=== PATIENT | female | born 1965 | race Caucasian/White ===

== ENCOUNTER 2018-08-22 22:12 | Emergency (ER) | payer BC ==
[~2018-08-22] VITALS: Ht 177.8 cm; Wt 63.6 kg
[2018-08-22] MEDS ORDERED: LACT10SO PO (23:02)
[2018-08-22] MEDS ORDERED: AMINOPYRIDINE PO (23:02)
[2018-08-22] MEDS ORDERED: BACL20TA PO (23:02)
--- NOTE | 2018-08-22 23:08 | NUR ---
Received pt on [address]. Pt tearful upon admission, but cooperative. Pt states she wants to kill herself because she is tired of dealing with MS. Pt has multiple scerosis since 1992 and hasn't been able to walk since late 1989's. Pt family went on vacation to [facility] and she was left at home with daily caregiver. Pt called caregiver and relayed her S.I. and caregiver called 911.
[2018-08-22 23:20] LABS: BASOPHILS % (AUTO) 0.3 % (0-1); EOSINOPHILS # (AUTO) 0.1 X10'3 (0-0.9); EOSINOPHILS % (AUTO) 1.5 % (0-6); HEMATOCRIT 40.6 % (35.0-45.0); HEMOGLOBIN 13.7 g/dl (12.0-16.0); LYMPHOCYTES # (AUTO) 2.4 X10'3 (1.1-4.8); MEAN CORPUSCULAR HEMOGLOBIN 29.8 PG (27.0-31.0); MEAN CORPUSCULAR HGB CONC 33.8 g/dL (33.0-36.5); MEAN CORPUSCULAR VOLUME 88.2 FL (78-98); MEAN PLATELET VOLUME 8.6 FL (7.4-10.4); MONOCYTES % (AUTO) 10.5 % (2-12); NEUTROPHILS # (AUTO) 6.1 X10'3 (1.8-7.7); NEUTROPHILS % (AUTO) 62.7 % (42-75); PLATELET COUNT 305 X10'3 (140-440); WHITE BLOOD COUNT 9.7 X10'3 (4.5-11.0)
[2018-08-22 23:32] LABS: ALANINE AMINOTRANSFERASE 22 U/L (12-78); ALBUMIN 3.3 G/DL (3.4-5.0); ALBUMIN/GLOBULIN RATIO 0.9 (1.1-1.5); ALKALINE PHOSPHATASE 68 IU/L (46-116); ANION GAP 6 (8-16); ASPARTATE AMINO TRANSFERASE 11 U/L (10-37); BILIRUBIN,TOTAL 0.2 MG/DL (0.1-1.0); BLOOD UREA NITROGEN 9 MG/DL (7-18); BUN/CREATININE RATIO 12.3 (6.6-38.0); CALCIUM 9.1 MG/DL (8.5-10.1); CHLORIDE 107 MMOL/L (99-107); CREATININE 0.73 MG/DL (0.40-0.90); GLUCOSE 102 MG/DL (70-104); POTASSIUM 3.7 MMOL/L (3.5-5.1); SODIUM 144 MMOL/L (135-145); TOTAL CARBON DIOXIDE 31.1 MMOL/L (24-32); TOTAL PROTEIN 6.8 G/DL (6.4-8.2); eGFR 83 ML/MIN
[2018-08-22 23:34] LABS: ETHANOL < 0.010 GM/DL (0.0-0.010)
--- NOTE | 2018-08-22 23:57 | NUR ---
Pt's home meds sent to pharmacy.
--- NOTE | 2018-08-22 23:58 | NUR ---
Pt's wheelchair placed in room 29 for safe keeping. Pt labels attached.
[2018-08-23] MEDS ORDERED: AMINOPYRIDINE PO
[2018-08-23] MEDS ORDERED: AMINOPYRIDINE PO SCH (00:05)
--- NOTE | 2018-08-23 01:00 | NUR ---
Pt agreeable with admission process and then was able to fall asleep.
[2018-08-23 01:22] LABS: URINE HCG NEGATIVE (NEG)
[2018-08-23 01:33] LABS: URINE AMPHETAMINE SCREEN NEGATIVE (Neg); URINE BARBITUATE SCREEN NEGATIVE (Neg); URINE BENZODIAZEPINES SCREEN NEGATIVE (Neg); URINE CANNABINOID SCREEN POSITIVE (Neg); URINE COCAINE SCREEN NEGATIVE (Neg); URINE METHADONE SCREEN NEGATIVE (Neg); URINE OPIATE SCREEN NEGATIVE (Neg); URINE PHENCYCLIDINE SCREEN NEGATIVE (Neg)
[2018-08-23 02:07] LABS: CLARITY,URINE CLOUDY (Clear); COLOR,URINE AMBER (Yellow); GLUCOSE, URINE NEGATIVE (Neg); KETONES,URINE TRACE mg/dl (Neg); LEUKOCYTE ESTERASE ,URINE MODERATE (Neg); NITRITES, URINE POSITIVE (Neg); OCCULT BLOOD,URINE TRACE-INTACT (Neg); PROTEIN,URINE NEGATIVE (Neg); UROBILINOGEN,URINE 0.2 E.U/dL (0.2-1.0)
[2018-08-23 02:08] LABS: UA COLLECTION TYPE URINAL
[2018-08-23 02:53] LABS: BACTERIA,URINE 3+ /HPF (Neg); MUCUS STRANDS FEW /LPF (Neg); RBC,URINE 0-2 /HPF (0-2); SQUAMOUS EPITHELIAL CELL,UR FEW /LPF (FEW); WBC,URINE TNTC /HPF (0-4)
--- NOTE | 2018-08-23 03:00 | NUR ---
Pt up to comode to urinate. Pt went back to sleep without distress.
--- NOTE | 2018-08-23 03:19 | NUR ---
Packet faxed to [facility]. Unable to confirm receipt of packet as [id number] hours. Updated Face Sheet will be sent to [facility] once Registration has updated pt's personal details.
--- NOTE | 2018-08-23 04:43 | NUR ---
This credit underwriter assisted pt to [facility]. Pericare given. Skin assessment - skin dry, clean and intact. Small bruise on pt's left buttock. Pt unaware, RN informed. Small dry lesion on top of left foot. Appears to be healing.
--- NOTE | 2018-08-23 05:00 | NUR ---
Pt urinalysis returned with probable urinary tract infection and MD ordered keflex abx to begin in am.
[2018-08-23] MEDS: baclofen 10mg tablet PO SCH ×3 (06:05→17:53)
[2018-08-23] MEDS: cephalexin 250mg capsule PO SCH ×2 (06:05→20:13)
[2018-08-23] MEDS: AMINOPYRIDINE PO SCH ×2 (06:06→17:55)
[2018-08-23] MEDS: lactulose 20gm/30ml cup PO SCH ×2 (06:13→17:55)
--- NOTE | 2018-08-23 06:30 | NUR ---
Assumed care from VIKY Horne. Pt awake sitting on the side of her bed. She is concerned about her dog getting fed this morning. DALIA Segovia retrieved a phone number from her property in the ambulance bay and will call at [phone] to assist w/getting her dog fed. 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
[2018-08-23] MEDS ORDERED: baclofen 10mg tablet PO SCH ×2 (08:00)
[2018-08-23] MEDS ORDERED: lactulose 20gm/30ml cup PO SCH (08:00)
--- NOTE | 2018-08-23 08:15 | NUR ---
Pt is up sitting on the bedside commode. She reports not having a bowel movement x2 days and has been given lactolose.
--- NOTE | 2018-08-23 08:45 | NUR ---
Pt's called. Pt tearful on the phone. Pt states she is upset that she was unable to go with her family to celebrate her son's college graduation.
--- NOTE | 2018-08-23 09:22 | NUR ---
Pt back on the bedside commode. Privacy provided.
--- NOTE | 2018-08-23 10:22 | NUR ---
Pt has had a BM continues to move from the commode back to her chair. Pt is able to transfer self. Pt shares that at home she is independent and is able to care for herself with the use of her "electric wheel chair I get around good."
--- NOTE | 2018-08-23 11:56 | NUR ---
JENNI Perez, [facility] mental health assessment.
--- NOTE | 2018-08-23 13:30 | NUR ---
Pt is sitting in a recliner reading a book. Her will be here tomorrow to correlate a discharge plan.
--- NOTE | 2018-08-23 14:42 | NUR ---
Pt in her bed laying on her back with her eyes closed. She appears to be sleeping. RR even and unlabored.
--- NOTE | 2018-08-23 15:11 | NUR ---
Pt resting in bed. No s/s of distress or pain. RN relieved for lunch. Will continue to monitor pt.
--- NOTE | 2018-08-23 15:54 | NUR ---
Pt continues to rest on her bed. Pt on the phone with caregiver.
--- NOTE | 2018-08-23 17:31 | NUR ---
Pt is resting on her bed w/her eyes closed. RR even and unlabored.
--- NOTE | 2018-08-23 18:07 | NUR ---
Pt is sitting up in the recliner having her dinner. 1800 meds passed.
--- NOTE | 2018-08-23 18:23 | NUR ---
Rec'd report for VIKY Jaimes. Patient is A&O x3, [place] (has MS uses wheelchair). She is appropriate and sitting in chair eating dinner, I will continue to monitor.
[2018-08-23] MEDS ORDERED: cephalexin 250mg capsule PO ONE (20:05)
[2018-08-23] MEDS: lactobacillus rhamnosus 10,000 MMU CELLS/CAPSULE PO SCH (20:13)
[2018-08-24] MEDS: baclofen 10mg tablet PO SCH ×2 (00:23→06:17)
--- NOTE | 2018-08-24 00:37 | NUR ---
PATIENT LYING IN BED SUPINE COVERS ON EYES CLOSED RR EVEN UN LABORED NO OBSERVABLE S/S OF ACUTE STRESS AT THIS TIME
--- NOTE | 2018-08-24 01:58 | NUR ---
PT APPEARS TO BE ASLEEP
--- NOTE | 2018-08-24 04:17 | NUR ---
PT IS ON HER HANDS AND KNEES AND DOING MODIFIED SIT UPS IN BED. WHEN ASKED WHAT SHE IS DOING SHE SAID 'NOTHING.' PT NO C/O ANYTHING. SITTER WILL CONTINUE TO MONITOR FOR PATIENT SAFETY.
--- NOTE | 2018-08-24 04:20 | NUR ---
SITTER REMOVED THE CLOCK FROM THE ROOM PER PT REQUEST, THE TICK TOCK NOISE WAS BOTHERING HER.
--- NOTE | 2018-08-24 04:52 | NUR ---
PT IS LAYING BACK DOWN WITH BLANKETS
[2018-08-24 05:52] VITALS: BP 111/73
[2018-08-24] MEDS: AMINOPYRIDINE PO SCH (06:17)
[2018-08-24] MEDS: lactulose 20gm/30ml cup PO SCH (06:17)
--- NOTE | 2018-08-24 06:40 | NUR ---
Pt brought to Overflow unit from main ER by ER staff. She continues to sleep. No s/s of distress. RR even and unlabored.
[2018-08-24] MEDS: lactobacillus rhamnosus 10,000 MMU CELLS/CAPSULE PO SCH (08:18)
[2018-08-24] MEDS: cephalexin 250mg capsule PO SCH (08:19)
--- NOTE | 2018-08-24 08:31 | NUR ---
Meds administered. Pt compliant w/tx. Pt is up sitting eating her breakfast. She is c/o feeling tired and doses of and on throughout her breakfast.
--- NOTE | 2018-08-24 10:22 | NUR ---
Pt continues to rest sitting up in a chair. She does not want to lay back down. Mental health has agreed to the discharge this morning. Caregiver, Hillary to pickle water pump operator and take home. The plan is that Hillary will stay w/pt until her gets home tonight. Pt denies SI stating she was depressed over not being able to go w/her and sons to [facility] to celebrate her youngest son graduating from college.
[2018-08-24] MEDS ORDERED: CEPH-571 PO (10:40)
--- NOTE | 2018-08-24 11:09 | NUR ---
Discharge Note: Hillary, caregiver is here to transport pt home. All personal property inventoried and property sheet signed by pt and Flory doss. Personal property given to the pt and caregiver, Hillary assisted her with getting dressed. Personal clothing, medications from pharmacy and all other items returned to pt. Pt denies SI stating, "I was depressed over the progression of my MS lately and not being able to go w/my and sons to celebrate my boys graduation." Pt escorted out with this nurse and caregiver.
== END 2018-08-24 11:09 | disposition home or self-care (01) ==
LOC: ER 22:12
DX: R45.851 Suicidal ideations (principal); N39.0 Urinary tract infection, site not specified; G35 Multiple sclerosis; Z79.899 Other long term (current) drug therapy
CPT/HCPCS: 36415; 80053; 80305; 80320; 81001; 81025; 85025; 87077; 87088; 87186; 99285

== ENCOUNTER 2020-11-14 22:30 | Emergency (ER) | payer SELFPAY ==
[~2020-11-14] VITALS: Ht 180.3 cm; Wt 70.0 kg
[~2020-11-14 22:30] MED LIST: AMINOPYRIDINE PO; BACL20TA PO; CEPH-571 PO; LACT10SO3 PO
[2020-11-14 22:46] VITALS: BP 115/76
[2020-11-14 23:58] LABS: CLARITY,URINE SLIGHTLY CLOUDY (Clear); COLOR,URINE YELLOW (Yellow); GLUCOSE, URINE NEGATIVE (Neg); KETONES,URINE NEGATIVE (Neg); LEUKOCYTE ESTERASE ,URINE SMALL (Neg); NITRITES, URINE NEGATIVE (Neg); OCCULT BLOOD,URINE LARGE (Neg); PROTEIN,URINE TRACE mg/dl (Neg); UROBILINOGEN,URINE 0.2 E.U/dL (0.2-1.0)
[2020-11-15 00:09] LABS: HEMATOCRIT 38.3 % (35.0-45.0); HEMOGLOBIN 12.1 g/dl (12.0-16.0); MEAN CORPUSCULAR HEMOGLOBIN 27.4 PG (27.0-31.0); MEAN CORPUSCULAR HGB CONC 31.5 g/dL (33.0-36.5); MEAN CORPUSCULAR VOLUME 87.2 FL (78-98); RED BLOOD COUNT 4.39 X10'6 (4.20-5.60)
[2020-11-15 00:10] LABS: ALANINE AMINOTRANSFERASE 12 U/L (12-78); ALBUMIN 2.9 G/DL (3.4-5.0); ALBUMIN/GLOBULIN RATIO 0.8 (1.1-1.5); ALKALINE PHOSPHATASE 60 IU/L (46-116); ANION GAP 8 (8-16); ASPARTATE AMINO TRANSFERASE 10 U/L (10-37); BILIRUBIN,TOTAL 0.2 MG/DL (0.1-1.0); BLOOD UREA NITROGEN 22 MG/DL (7-18); BUN/CREATININE RATIO 30.6 (6.6-38.0); CALCIUM 8.6 MG/DL (8.5-10.1); CHLORIDE 109 MMOL/L (99-107); CREATININE 0.72 MG/DL (0.40-0.90); EOSINOPHILS % (AUTO) 1.8 % (0-6); GLUCOSE 115 MG/DL (70-104); MEAN PLATELET VOLUME 8.6 FL (7.4-10.4); NEUTROPHILS % (AUTO) 69.9 % (42-75); PLATELET COUNT 373 X10'3 (140-440); POTASSIUM 4.2 MMOL/L (3.5-5.1); RED CELL DISTRIBUTION WIDTH 17.3 % (11.5-14.5); SODIUM 146 MMOL/L (135-145); TOTAL CARBON DIOXIDE 29.3 MMOL/L (24-32); TOTAL PROTEIN 6.7 G/DL (6.4-8.2); eGFR 83 ML/MIN
[2020-11-15 00:11] LABS: BASOPHILS % (AUTO) 0.3 % (0-1); EOSINOPHILS # (AUTO) 0.2 X10'3 (0-0.9); LYMPHOCYTES # (AUTO) 2.6 X10'3 (1.1-4.8)
[2020-11-15 01:01] LABS: UA COLLECTION TYPE FOLEY CATH
[2020-11-15 01:05] LABS: RBC,URINE 50-100 /HPF (0-2); WBC,URINE 0-4 /HPF (0-4)
[2020-11-15 01:06] LABS: BACTERIA,URINE NONE SEEN /HPF (Neg); SQUAMOUS EPITHELIAL CELL,UR NONE SEEN /LPF (FEW)
[2020-11-15 01:07] LABS: AMORPHOUS URATES 3+
== END 2020-11-15 07:12 | disposition home or self-care (01) ==
LOC: ER 22:31
DX: R31.9 Hematuria, unspecified (principal); Z79.2 Long term (current) use of antibiotics; Z79.899 Other long term (current) drug therapy
CPT/HCPCS: 36415; 80053; 81001; 81003; 83605; 85025; 87040; 87077; 87088; 87186; 99283

== ENCOUNTER 2020-11-17 22:11 | Inpatient (IN) | payer BC ==
[~2020-11-17] VITALS: Ht 180.3 cm; Wt 65.9 kg
--- NOTE | 2020-11-18 00:57 | NUR ---
Bladder scan reveals >1,800 mls; MD Elizabeth notified.
[2020-11-18 01:50] LABS: CLARITY,URINE CLOUDY (Clear); COLOR,URINE YELLOW (Yellow); GLUCOSE, URINE NEGATIVE (Neg); KETONES,URINE NEGATIVE (Neg); LEUKOCYTE ESTERASE ,URINE MODERATE (Neg); NITRITES, URINE NEGATIVE (Neg); OCCULT BLOOD,URINE LARGE (Neg); PROTEIN,URINE TRACE mg/dl (Neg); UROBILINOGEN,URINE 0.2 E.U/dL (0.2-1.0)
[2020-11-18 01:55] LABS: UA COLLECTION TYPE FOLEY CATH
[2020-11-18 02:00] LABS: BACTERIA,URINE 4+ /HPF (Neg); MUCUS STRANDS NONE SEEN /LPF (Neg); RBC,URINE 50-100 /HPF (0-2); SQUAMOUS EPITHELIAL CELL,UR NONE SEEN /LPF (FEW)
[2020-11-18 02:22] LABS: BASOPHILS % (AUTO) 0.2 % (0-1); EOSINOPHILS # (AUTO) 0.2 X10'3 (0-0.9); EOSINOPHILS % (AUTO) 1.8 % (0-6); HEMATOCRIT 39.7 % (35.0-45.0); HEMOGLOBIN 12.6 g/dl (12.0-16.0); LYMPHOCYTES # (AUTO) 2.4 X10'3 (1.1-4.8); LYMPHOCYTES % (AUTO) 20.7 % (21-51); MEAN CORPUSCULAR HEMOGLOBIN 27.6 PG (27.0-31.0); MEAN CORPUSCULAR HGB CONC 31.8 g/dL (33.0-36.5); MEAN CORPUSCULAR VOLUME 86.8 FL (78-98); MEAN PLATELET VOLUME 8.8 FL (7.4-10.4); MONOCYTES # (AUTO) 1.2 X10'3 (0-0.9); MONOCYTES % (AUTO) 10.4 % (2-12); NEUTROPHILS # (AUTO) 7.8 X10'3 (1.8-7.7); NEUTROPHILS % (AUTO) 66.9 % (42-75); PLATELET COUNT 388 X10'3 (140-440); RED BLOOD COUNT 4.57 X10'6 (4.20-5.60); RED CELL DISTRIBUTION WIDTH 17.1 % (11.5-14.5); WHITE BLOOD COUNT 11.6 X10'3 (4.5-11.0)
[2020-11-18 02:27] LABS: ALBUMIN 3.1 G/DL (3.4-5.0); ANION GAP 7 (8-16); BLOOD UREA NITROGEN 19 MG/DL (7-18); BUN/CREATININE RATIO 33.3 (6.6-38.0); CALCIUM 8.6 MG/DL (8.5-10.1); CHLORIDE 108 MMOL/L (99-107); CREATININE 0.57 MG/DL (0.40-0.90); GLUCOSE 116 MG/DL (70-104); POTASSIUM 4.2 MMOL/L (3.5-5.1); SODIUM 148 MMOL/L (135-145); TOTAL CARBON DIOXIDE 33.3 MMOL/L (24-32); eGFR > 90 ML/MIN
[2020-11-18] MEDS ORDERED: GABA600T13 PO (02:59)
[2020-11-18] MEDS ORDERED: METH-603 PO (02:59)
[2020-11-18] MEDS ORDERED: APIX5TAB3 PO (03:00)
[2020-11-18] MEDS ORDERED: DOCU-151 PO (03:01)
--- NOTE | 2020-11-18 03:02 | NUR ---
Caregiver Evelina: [phone]/also can be reached out her house phone: [phone]
[2020-11-18] MEDS ORDERED: piperacillin/tazo 4.5gm/100ml 100 ML IV ONE (03:11)
[2020-11-18] MEDS ORDERED: ondansetron/PF 4mg/2ml inj IV PRN (04:10)
[2020-11-18] MEDS ORDERED: magnesium hydroxide 30ml (MOM) UD suspension PO PRN (04:10)
[2020-11-18] MEDS ORDERED: mag hydrox/Alum hydrox/simeth 30ml oral suspension PO PRN (04:10)
[2020-11-18] MEDS ORDERED: acetaminophen 325mg tablet PO PRN (04:10)
[2020-11-18] MEDS: normal saline 1000ml 1,000 ML IV SCH ×2 (04:47→12:28)
[2020-11-18] MEDS: methadone 5mg tablet PO SCH ×2 (07:22→20:20)
[2020-11-18] MEDS: gabapentin 300mg capsule PO SCH ×2 (07:22→17:16)
[2020-11-18] MEDS: docusate sod 100mg capsule PO SCH ×2 (07:23→20:20)
[2020-11-18] MEDS ORDERED: docusate sod 100mg capsule PO SCH (08:00)
[2020-11-18] MEDS: baclofen 10mg tablet PO SCH ×4 (08:36→21:00)
[2020-11-18] MEDS: apixaban 5mg tablet PO SCH ×2 (09:40→20:21)
--- NOTE | 2020-11-18 11:07 | NUR ---
Assuming care of pt, report from Tommy SALMON. Pt awake and alert, bonilla draining clear yellow urine.
[2020-11-18] MEDS: meropenem inj 1 GM in normal saline 100ml IV soln 100 ML IV SCH ×2 (12:28→20:18)
--- NOTE | 2020-11-18 14:27 | NUR ---
PT HAPPY, TOLERATED LUNCH WELL. NO DISTRESS, AWAITING ROOM ON INPATIENT UNIT.
[2020-11-18] MEDS ORDERED: ondansetron 4mg rapidly disintigrating tab PO PRN (14:40)
--- NOTE | 2020-11-18 17:23 | NUR ---
PT MOVED ONTO HOSPITAL BED, REPOSITIONED. SKIN AROUND BUTTOCKS RED. NOTED LAC IV TO BE INFILTRATED, IV REMOVED TIP INTACT, L EXTREMITY ELEVATED, AND WARM BLANKETS PLACED. NEW IV STARTED TO R HAND
[2020-11-18] MEDS: lactobacillus rhamnosus 10,000 MMU CELLS/CAPSULE PO SCH (20:20)
--- NOTE | 2020-11-18 21:15 | NUR ---
PT WITH SOFT BROWN BOWEL MVMT, CLEANSED WELL, CABRALES AND PERICARE PROVIDED. PT TURNED TO R SIDE, WATCHING TV IN ROOM
--- NOTE | 2020-11-18 22:00 | NUR ---
Previous baclofen given late. Too soon to give timed dose
[2020-11-19] MEDS: normal saline 1000ml 1,000 ML IV SCH ×2 (00:10→10:10)
[2020-11-19] MEDS: meropenem inj 1 GM in normal saline 100ml IV soln 100 ML IV SCH ×2 (04:45→13:04)
[2020-11-19] MEDS: gabapentin 300mg capsule PO SCH ×2 (07:06)
--- NOTE | 2020-11-19 07:08 | NUR ---
pt having tremors, asking for gabapentin. gave her 8a dose of gabapentin now.
--- NOTE | 2020-11-19 07:18 | NUR ---
Patient in room ED 11. I have received report from Niurka SALMON and had the opportunity to ask questions and assume patient care.
[2020-11-19] MEDS: lactobacillus rhamnosus 10,000 MMU CELLS/CAPSULE PO SCH (08:47)
[2020-11-19] MEDS: baclofen 10mg tablet PO SCH ×2 (08:48→13:04)
[2020-11-19] MEDS: apixaban 5mg tablet PO SCH (08:48)
[2020-11-19] MEDS: methadone 5mg tablet PO SCH (08:48)
[2020-11-19] MEDS: docusate sod 100mg capsule PO SCH (08:48)
[2020-11-19 09:14] LABS: BASOPHILS % (AUTO) 0.1 % (0-1); EOSINOPHILS # (AUTO) 0.4 X10'3 (0-0.9); EOSINOPHILS % (AUTO) 6.6 % (0-6); HEMATOCRIT 33.7 % (35.0-45.0); HEMOGLOBIN 11.1 g/dl (12.0-16.0); LYMPHOCYTES # (AUTO) 2.1 X10'3 (1.1-4.8); LYMPHOCYTES % (AUTO) 37.4 % (21-51); MEAN CORPUSCULAR HEMOGLOBIN 28.4 PG (27.0-31.0); MEAN CORPUSCULAR HGB CONC 32.9 g/dL (33.0-36.5); MEAN CORPUSCULAR VOLUME 86.3 FL (78-98); MEAN PLATELET VOLUME 8.3 FL (7.4-10.4); MONOCYTES # (AUTO) 0.4 X10'3 (0-0.9); MONOCYTES % (AUTO) 6.6 % (2-12); NEUTROPHILS # (AUTO) 2.7 X10'3 (1.8-7.7); NEUTROPHILS % (AUTO) 49.3 % (42-75); PLATELET COUNT 315 X10'3 (140-440); RED BLOOD COUNT 3.91 X10'6 (4.20-5.60); WHITE BLOOD COUNT 5.5 X10'3 (4.5-11.0)
[2020-11-19] MEDS ORDERED: CEFD300C21 PO (09:31)
[2020-11-19 09:32] LABS: ALANINE AMINOTRANSFERASE 13 U/L (12-78); ALBUMIN 2.6 G/DL (3.4-5.0); ALBUMIN/GLOBULIN RATIO 0.7 (1.1-1.5); ALKALINE PHOSPHATASE 52 IU/L (46-116); ANION GAP 6 (8-16); ASPARTATE AMINO TRANSFERASE 6 U/L (10-37); BILIRUBIN,TOTAL 0.2 MG/DL (0.1-1.0); BLOOD UREA NITROGEN 7 MG/DL (7-18); CALCIUM 8.3 MG/DL (8.5-10.1); CHLORIDE 109 MMOL/L (99-107); CREATININE 0.54 MG/DL (0.40-0.90); GLUCOSE 130 MG/DL (70-104); POTASSIUM 3.8 MMOL/L (3.5-5.1); SODIUM 146 MMOL/L (135-145); TOTAL CARBON DIOXIDE 31.2 MMOL/L (24-32); TOTAL PROTEIN 6.1 G/DL (6.4-8.2); eGFR > 90 ML/MIN
[2020-11-19 11:00] VITALS: BP 94/50
--- NOTE | 2020-11-19 14:30 | NUR ---
Pt DC to home with her regular senior care provider. Pt is A & o x4 and in no apparent distress. Pt verbalizes understanding of all DC orders and the importance of following up with her PCP.Pt will take her antibiotics for 5 days and until is gone. Pt's bonilla is flowing and draining properly. Pt was loaded with the lift onto her electric chair and taken to the front where her regular senior care provider took her home.
== END 2020-11-19 14:25 | disposition home health service (06) | DRG 700 ==
LOC: ER 22:12 → ED HOLD 11-18 04:12 → SUR 3N 11-19 07:20
PROVIDERS: ADMIT Internal Medicine; ATTEND Internal Medicine
DX: T83.511A Infection and inflammatory reaction due to indwelling urethral catheter, initial encounter (principal); G35 Multiple sclerosis; Y84.6 Urinary catheterization as the cause of abnormal reaction of the patient, or of later complication, without mention of misadventure at the time of the procedure; G89.29 Other chronic pain; N39.0 Urinary tract infection, site not specified; Z66 Do not resuscitate; Z79.01 Long term (current) use of anticoagulants; Z86.711 Personal history of pulmonary embolism; Y92.89 Other specified places as the place of occurrence of the external cause; Z79.899 Other long term (current) drug therapy; Z86.718 Personal history of other venous thrombosis and embolism
CPT/HCPCS: 36415; 80048; 80053; 81001; 85025; 87077; 87081; 87088; 87186; 99285; G0378; J2185; J2543; J7030